=== PATIENT | female | born 1950 | race Two or more races ===

== ENCOUNTER 2020-03-12 14:31 | Outpatient (CLI) | payer OTHER | END 2020-03-12 15:03 | disposition home or self-care (01) | LOC: RAD 14:31 | PROVIDERS: ATTEND Orthopaedic Surgery Adult Reconstructive Orthopaedic Surgery | DX: M16.11 Unilateral primary osteoarthritis, right hip (principal); Z96.642 Presence of left artificial hip joint ==

== ENCOUNTER 2024-04-11 09:36 | Outpatient (CLI) | payer OTHER | END 2024-04-11 09:41 | disposition home or self-care (01) | LOC: RAD 09:36 | PROVIDERS: ATTEND Physical Medicine & Rehabilitation | DX: M25.511 Pain in right shoulder (principal) ==

== ENCOUNTER 2024-11-25 08:52 | Outpatient (CLI) | payer OTHER | END 2024-11-25 08:59 | disposition home or self-care (01) | LOC: TOM 08:52 | PROVIDERS: ATTEND Physical Medicine & Rehabilitation | DX: M54.17 Radiculopathy, lumbosacral region (principal) ==